=== PATIENT | female | born 1935 | race Caucasian/White ===

== ENCOUNTER 2019-12-19 17:43 | Emergency (ER) | payer MEDICARE, OTHER ==
[~2019-12-19] VITALS: Ht 167.6 cm; Wt 63.6 kg
[~2019-12-19 17:43] MED LIST: AMOXICILLIN500 MG PO; ANTIVERT12.5 MG PO; FLONASE NASAL50 MCG; MECLIZINE25 MG PO; MEDDOSEPAK PO; PRAVASTATIN10 MG PO; ZOFRAN ODT4 MG PO
[2019-12-19 18:11] LABS: HEMATOCRIT 40.5 % (37.0-47.0); HEMOGLOBIN 13.2 g/dl (12.0-16.0); IMMATURE GRANULOCYTES 0.2 % (0.0-5.0); MEAN CORPUSCULAR HGB 28.7 pG CALC (26.0-32.0); MEAN CORPUSCULAR HGB CONC 32.6 g/dL CAL (32.0-36.0); NEUT# 2.47 thou/uL (2.00-7.15); RED BLOOD COUNT 4.6 mill/uL (4.20-5.60); RED CELL DISTRI WIDTH 13.8 % (11.5-15.5)
[2019-12-19 18:43] LABS: ALBUMIN 4.3 g/dL (3.2-5.0); ALKALINE PHOSPHATASE 90 u/l (38-126); ANION GAP 11 (6-22 (CALC)); BILIRUBIN, TOTAL 0.6 mg/dL (0.0-1.4); BUN 21 mg/dL (8-23); BUN/CREATININE RATIO 22 (12-20 (CALC)); CARBON DIOXIDE 24 mmol/l (22-30); CHLORIDE 105 mmol/l (95-108); CREATININE 0.9 mg/dL (0.5-1.0); GFR 60 ML/MIN (>=60 (CALC)); GFR FOR AFR.AMER. > 60 ML/MIN (>=60 (CALC)); POTASSIUM 3.9 mmol/l (3.5-5.1); SGOT/AST 25 u/l (9-36); SODIUM 136 mmol/l (137-146); TOTAL PROTEIN 7.2 g/dL (6.3-8.2)
[2019-12-19] MEDS ORDERED: MECLIZINE25 M1 PO (19:21)
[2019-12-19 19:22] VITALS: BP 174/69
== END 2019-12-19 19:22 | disposition home or self-care (01) ==
LOC: ED 17:43
PROVIDERS: Family Medicine
DX: R42 Dizziness and giddiness (principal); I10 Essential (primary) hypertension

== ENCOUNTER 2020-08-17 19:26 | Emergency (ER) | payer MEDICARE, OTHER ==
[~2020-08-17 19:26] MED LIST changes: +MECLIZINE25 M1 PO
[2020-08-17 20:20] VITALS: BP 184/87
== END 2020-08-17 20:20 | disposition home or self-care (01) ==
LOC: ED 19:26
DX: S40.021A Contusion of right upper arm, initial encounter (principal); I10 Essential (primary) hypertension; I25.2 Old myocardial infarction; W19.XXXA Unspecified fall, initial encounter; Z79.01 Long term (current) use of anticoagulants

== ENCOUNTER 2020-12-15 10:18 | Emergency (ER) | payer MEDICARE, OTHER ==
[2020-12-15 12:34] VITALS: BP 149/64
== END 2020-12-15 12:48 | disposition home or self-care (01) ==
LOC: ED 10:18
PROC: 0HQGXZZ Repair Left Hand Skin, External Approach (ICD-10-PCS; principal; 2020-12-15)
DX: S61.213A Laceration without foreign body of left middle finger without damage to nail, initial encounter (principal); I10 Essential (primary) hypertension; I25.2 Old myocardial infarction; W45.8XXA Other foreign body or object entering through skin, initial encounter; Z79.01 Long term (current) use of anticoagulants

== ENCOUNTER 2024-05-08 17:40 | Emergency (ER) | payer MEDICARE, OTHER ==
[2024-05-08] VITALS (68 sets, daily range): BP systolic 57–136; BP diastolic 29–102
[~2024-05-08 17:40] MED LIST changes: +(None)125 MG PO; +APAP325 MG PO; +ATORVASTATIN CA80 MG PO; +CALCIUM CHLORIDE 10% 100 MG/ML 10ML SYR IV ONE; +CLOPIDOGREL75 MG PO; +DULCOLAX10 MG RE; +ELIQUIS2.5 MG PO; +EPINEPHrine HCL 0.1 MG/ML 10 ML SYR IV ONE; +MAGNESIUM SULFATE 50% 1 GM/2 ML IV ONE; +MILK OF MAGNESI1 SUS PO; +ONDANSETRON4 MG PO; +POLY GLYCOL3350 MG PO; +PROBIOTI2 PO; +PROTONIX40 M2 PO; +SODIUM BICARBONATE 8.4% 50 ML/SYR IV ONE; +SUCRALFATE1 GM PO; +TRAMADOL HYDROC50 M1 PO; +VITAMIN D325 MCG PO
[2024-05-08] MEDS ORDERED: NOREPINEPHRINE BITARTRATE 4 MG/VIAL SDV ONE (17:47)
[2024-05-08] MEDS ORDERED: SODIUM CHLORIDE 250 ML IV ONE ×2 (17:49→18:01)
[2024-05-08] MEDS ORDERED: PHENYLEPHRINE HCL 10 MG/ML VIAL ONE (17:51)
[2024-05-08] MEDS ORDERED: SODIUM CHLORIDE 0.9% 100 ML IV ONE (17:52)
[2024-05-08] MEDS ORDERED: EPINEPHrine HCL 1 MG/ML 10 ML ONE (18:01)
[2024-05-08] MEDS ORDERED: PROPOFOL 100 ML IV ONE (18:02)
[2024-05-08] MEDS ORDERED: SODIUM CHLORIDE 0.9% 1,000 ML IV ONE ×3 (18:04→20:20)
[2024-05-08] MEDS ORDERED: cefTRIAXone SODIUM 2 GM in SODIUM CHLORIDE 0.9% 100 ML IV ONE (18:35)
[2024-05-08 18:36] LABS: MEAN CELL VOLUME 90.4 fL CALC (80.0-100.0); MEAN CORPUSCULAR HGB 27.6 pG CALC (26.0-32.0); MEAN CORPUSCULAR HGB CONC 30.6 g/dL CAL (32.0-36.0); PLATELET COUNT 156 thou/uL (130-400); RED BLOOD COUNT 2.28 mill/uL (4.20-5.60); RED CELL DISTRI WIDTH 17.6 % (11.5-15.5)
[2024-05-08 18:43] LABS: HEMATOCRIT 20.6 % (37.0-47.0); HEMOGLOBIN 6.3 g/dl (12.0-16.0); IMMATURE GRANULOCYTES 8.3 % (0.0-5.0); MANUAL DIFFERENTIAL YES
[2024-05-08] MEDS ORDERED: SODIUM CHLORIDE 0.9% 500 ML IV ONE (18:45)
[2024-05-08 18:46] LABS: CREATININE 1.1 mg/dL (0.5-1.0)
[2024-05-08 18:54] LABS: BILIRUBIN, TOTAL 0.3 mg/dL (0.02-1.3); POTASSIUM 3.5 mmol/l (3.5-5.1); TOTAL PROTEIN 3.4 g/dL (6.3-8.2)
[2024-05-08 18:55] LABS: INTERNATIONAL NORMALIZED RATIO 2.4 RATIO (0.7-1.3); PROTHROMBIN TIME 24.7 SECONDS (9.0-12.5)
[2024-05-08] MEDS ORDERED: Pantoprazole Sodium 40 MG VIAL (Protonix) IV ONE (19:05)
[2024-05-08 19:11] LABS: ANISOCYTOSIS MODERATE; BAND 14 % (0-8); POIKILOCYTOSIS FEW; SCHISTOCYTES FEW
[2024-05-08 19:12] LABS: ACANTHOCYTES FEW; OTHER CELL TYPE SMUDGE CELLS; PLATELET ESTIMATE NORMAL
[2024-05-08] MEDS ORDERED: SODIUM CHLORIDE 0.9% 250 ML IV PRN ×2 (19:40→21:30)
[2024-05-08] MEDS ORDERED: NOREPINEPHRINE BITARTRATE 4 MG in DEXTROSE 5% 250 ML IV ONE ×2 (19:40→21:30)
[2024-05-08] MEDS ORDERED: SODIUM BICARBONATE 8.4% 50 ML/SYR IV ONE ×2 (20:30)
[2024-05-08] MEDS ORDERED: AZITHROMYCIN 500 MG in SODIUM CHLORIDE 0.9% 500 ML IV ONE (20:40)
[2024-05-08] MEDS ORDERED: CALCIUM GLUCONATE 1 GM in SODIUM CHLORIDE 0.9% 50 ML IV ONE (21:55)
[2024-05-08] MEDS ORDERED: CALCIUM GLUCONATE 1 GM/10 ML VIAL IV ONE (21:58)
== END 2024-05-08 21:45 | disposition short-term general hospital (02) ==
LOC: ED 17:40
PROVIDERS: Family Medicine
PROC: 05HM33Z Insertion of Infusion Device into Right Internal Jugular Vein, Percutaneous Approach (ICD-10-PCS; principal; 2024-05-08)
PROC: 3E043XZ Introduction of Vasopressor into Central Vein, Percutaneous Approach (ICD-10-PCS; 2024-05-08)
PROC: 0T9B70Z Drainage of Bladder with Drainage Device, Via Natural or Artificial Opening (ICD-10-PCS; 2024-05-08)
DX: I46.9 Cardiac arrest, cause unspecified (principal); U07.1 COVID-19; I95.9 Hypotension, unspecified; I10 Essential (primary) hypertension; I25.2 Old myocardial infarction; Z95.5 Presence of coronary angioplasty implant and graft
CPT/HCPCS: J0456; J0612; J0696; J2470; J2704; P9016